=== PATIENT | female | born 1985 | race African-American/Black ===

== ENCOUNTER 2023-05-23 07:59 | Emergency (ER) | payer OTHER, SELFPAY ==
[2023-05-23 08:02] VITALS: BP 160/100; PULSE 87; TEMP 37; O2SAT 98; BMI 51.5
[2023-05-23 08:09] LABS: Glucometer 341 mg/dL (74-106)
[2023-05-23] MEDS: 0.9 % SODIUM CHLORIDE 1,000 ML 1000 ML IV (08:22)
[2023-05-23 08:26] LABS: Basophils Absolute Auto 0.1 10^3/uL (0.0-0.1); Basophils Percent Auto 0.7 % (0.2-2.0); Eosinophils Absolute Auto 0.3 10^3/uL (0.0-0.7); Eosinophils Percent Auto 2.8 % (0.9-7.0); Hematocrit 38.9 % (36.0-48.0); Hemoglobin 12.7 g/dL (12.0-16.0); Immature Granulocytes Abs Auto 0.05 10^3/uL (0.00-0.03); Immature Granulocytes Pct Auto 0.4 % (0.0-0.5); Lymphocytes Absolute Auto 4.6 10^3/uL (1.2-3.8); Lymphocytes Percent Auto 38.1 % (20.5-60.0); Mean Corpuscular HGB Conc 32.6 g/dL (29.9-35.2); Mean Corpuscular Hemoglobin 26.5 pg (26.7-34.0); Mean Platelet Volume 9.4 fL (9.5-13.5); Platelet Count 411 10^3/uL (150-450); Red Cell Distribution Width 13.5 % (11.0-15.0); White Blood Count 12.1 10^3/uL (4.0-11.0)
[2023-05-23 08:47] LABS: Anion Gap 15.4; Calcium 9.4 mg/dL (8.5-10.1); Carbon Dioxide 22.7 mmol/L (21.0-32.0); Chloride 99 mmol/L (98-107); Estimated GFR (African America >60 (>=60); Estimated GFR (Non-African Ame >60 (>=60); Glucose 345 mg/dL (74-106); Potassium 4.1 mmol/L (3.5-5.1); Sodium 133 mmol/L (136-145)
[2023-05-23 09:02] LABS: Glucometer 313 mg/dL (74-106)
[2023-05-23] MEDS: INSULIN REGULAR 300 UNITS/3 ML 8 UNIT IV (09:08)
[2023-05-23 09:15] VITALS: BP 124/86
--- NOTE | 2023-05-23 09:53 | ED.GENADUL1 ---
HPI HPI - General Adult General Chief complaint: Recheck/Abnormal Lab/Rx Stated complaint: HIGH BLOOD SUGAR Time Seen by Provider: 05/23/23 08:02 Source: patient Mode of arrival: walk-in Limitations: no limitations History of Present Illness HPI narrative: 38-year-old female presents to the emergency department for elevated blood sugar. She has been off of her medications for about a month and a half.She has had some frequent urination and has been thirsty. She recently got her insurance back and now can get back on her medication but she does not have a PCP. No fever or vomiting. Related Data Home Medications ?Medication ?Instructions ?Recorded ?Confirmed tirzepatide 12.5 mg/0.5 mL 12.5 mg subcut QWEEK 05/23/23 05/23/23 subcutaneous pen injector (Mounjaro) Previous Rx's ?Medication ?Instructions ?Recorded tirzepatide 2.5 mg/0.5 mL 2.5 mg (0.5 mL) subcut QWEEK 4 05/23/23 subcutaneous pen injector weeks #4 mL (Mounjaro) Allergies Allergy/AdvReac Type Severity Reaction Status Date / Time No Known Drug Allergies Allergy Verified 05/23/23 08:05 Opioid HPI Opioid Management Most Recent Opioid Data: No Data to Display Review of Systems ROS Narrative A ten point review of systems is negative except as noted above. Positive for polyuria and polydipsia Exam Narrative Exam Narrative: Nurses note and vital signs reviewed and patient is not hypoxic. General: The patient appears well and in no apparent distress. Patient is resting comfortably on cart. Skin: Warm, dry, no pallor noted. There is no rash noted. Head: Normocephalic, atraumatic Eye: Normal conjunctiva, no drainage Ears, Nose, Mouth, and Throat: oral mucosa is moist. Nares patent. Cardiovascular: Regular Rate and Rhythm Respiratory: Patient is in no distress, no accessory muscle use, lungs are clear to auscultation, no wheezing, rales or rhonchi Back: non-tender GI: Soft and nontender Musculoskeletal: The patient has no evidence of calf tenderness, no pitting edema, symmetrical pulses noted bilaterally Neurological: A&O, normal speech Psychiatric: Cooperative Constitutional Vital Signs, click to edit/add: Last Vital Signs Temp 98.6 F 05/23/23 08:02 Pulse 87 05/23/23 08:02 Resp 18 05/23/23 08:02 BP 124/86 05/23/23 09:15 Pulse Ox 98 05/23/23 08:02 O2 Del Method Room Air 05/23/23 08:02 Course Vital Signs Vital signs: Vital Signs Temperature 98.6 F 05/23/23 08:02 Pulse Rate 87 05/23/23 08:02 Respiratory Rate 18 05/23/23 08:02 Blood Pressure 160/100 H 05/23/23 08:02 Pulse Oximetry 98 05/23/23 08:02 Oxygen Delivery Method Room Air 05/23/23 08:02 Temperature 98.6 F 05/23/23 08:02 Pulse Rate 87 05/23/23 08:02 Respiratory Rate 18 05/23/23 08:02 Blood Pressure 124/86 05/23/23 09:15 Pulse Oximetry 98 05/23/23 08:02 Oxygen Delivery Method Room Air 05/23/23 08:02 Medical Decision Making MDM Narrative Medical decision making narrative: Blood sugar was found to be elevated and she was given IV fluids and IV insulin and her blood sugar has been coming down. She is given a list of PCPs and was given a 2-month supply of her medication. Treatment diagnosis and follow-up were discussed with the patient. Differential Diagnosis Differential Diagnosis: Hyperglycemia, DKA Lab Data Lab results reviewed: Yes I reviewed the patient's lab results Labs: Lab Results 05/23/23 05/23/23 05/23/23 Range/Units 08:08 08:20 09:01 WBC 12.1 H (4.0-11.0) 10^3/uL RBC 4.80 (4.20-5.40) 10^6/uL Hgb 12.7 (12.0-16.0) g/dL Hct 38.9 (36.0-48.0) % MCV 81.0 (81.0-99.0) fL MCH 26.5 L (26.7-34.0) pg MCHC 32.6 (29.9-35.2) g/dL RDW 13.5 (11.0-15.0) % Plt Count 411 (150-450) 10^3/uL MPV 9.4 L (9.5-13.5) fL Neut % (Auto) 50.0 (43.0-75.0) % Lymph % (Auto) 38.1 (20.5-60.0) % [place] % (Auto) 8.0 (1.7-12.0) % Eos % (Auto) 2.8 (0.9-7.0) % Baso % (Auto) 0.7 (0.2-2.0) % Neut # (Auto) 6.0 (1.4-6.5) 10^3/uL Lymph # (Auto) 4.6 H (1.2-3.8) 10^3/uL [place] # (Auto) 1.0 H (0.3-0.8) 10^3/uL Eos # (Auto) 0.3 (0.0-0.7) 10^3/uL Baso # (Auto) 0.1 (0.0-0.1) 10^3/uL Abs Immat Gran (auto) 0.05 H (0.00-0.03) 10^3/uL Imm/Tot Granulo (auto) 0.4 (0.0-0.5) % Sodium 133 L (136-145) mmol/L Potassium 4.1 (3.5-5.1) mmol/L Chloride 99 (98-107) mmol/L Carbon Dioxide 22.7 (21.0-32.0) mmol/L Anion Gap 15.4 BUN 12.0 (7.0-18.0) mg/dL Creatinine 0.80 (0.55-1.02) mg/dL Est GFR ( Amer) >60 (>=60) Est GFR (Non-Af Amer) >60 (>=60) BUN/Creatinine Ratio 15.0 Glucose 345 H (74-106) mg/dL Calcium 9.4 (8.5-10.1) mg/dL POC Glucose 341 H 313 H (74-106) mg/dL 05/23/23 Range/Units 10:00 WBC (4.0-11.0) 10^3/uL RBC (4.20-5.40) 10^6/uL Hgb (12.0-16.0) g/dL Hct (36.0-48.0) % MCV (81.0-99.0) fL MCH (26.7-34.0) pg MCHC (29.9-35.2) g/dL RDW (11.0-15.0) % Plt Count (150-450) 10^3/uL MPV (9.5-13.5) fL Neut % (Auto) (43.0-75.0) % Lymph % (Auto) (20.5-60.0) % [place] % (Auto) (1.7-12.0) % Eos % (Auto) (0.9-7.0) % Baso % (Auto) (0.2-2.0) % Neut # (Auto) (1.4-6.5) 10^3/uL Lymph # (Auto) (1.2-3.8) 10^3/uL [place] # (Auto) (0.3-0.8) 10^3/uL Eos # (Auto) (0.0-0.7) 10^3/uL Baso # (Auto) (0.0-0.1) 10^3/uL Abs Immat Gran (auto) (0.00-0.03) 10^3/uL Imm/Tot Granulo (auto) (0.0-0.5) % Sodium (136-145) mmol/L Potassium (3.5-5.1) mmol/L Chloride (98-107) mmol/L Carbon Dioxide (21.0-32.0) mmol/L Anion Gap BUN (7.0-18.0) mg/dL Creatinine (0.55-1.02) mg/dL Est GFR ( Amer) (>=60) Est GFR (Non-Af Amer) (>=60) BUN/Creatinine Ratio Glucose (74-106) mg/dL Calcium (8.5-10.1) mg/dL POC Glucose 276 H (74-106) mg/dL Critical Care Time Critical Care Time Critical Care Time: Yes Total Critical Care Time: 35 Attestation: Due to the high probability of sudden and clinically significant deterioration in the patient's condition he/she required the highest level of my preparedness to intervene urgently I provided critical care time including documentation time, medication orders and management, reevaluation, vital sign assessment, ordering and reviewing of lab tests, ordering and reviewing of x-ray studies, and admission orders. Aggregate critical care time is 35 minutes including only time during which I was engaged in work directly related to his/her care and did not include time spent treating other patients simultaneously. Discharge Plan Discharge Stand Alone Forms: Portal Instructions Chief Complaint: Recheck/Abnormal Lab/Rx Clinical Impression: Encounter for medication refill, Hyperglycemia Patient Disposition: Home, Self-Care Time of Disposition Decision: 10:04 Condition: Good Mode of Transportation: Private Vehicle Prescriptions / Home Meds: New Mounjaro 2.5 mg/0.5 mL pen injector 2.5 mg subcut QWEEK 28 Days Qty: 4 0RF No Action Mounjaro 12.5 mg/0.5 mL pen injector 12.5 mg subcut QWEEK Print Language: Syrian Instructions: Diabetic Hyperglycemia (ED) Additional Instructions: See attached list for PCP Referrals: Physician,Non-Staff, MD [Primary Care Provider] - 1 week
[2023-05-23 10:01] LABS: Glucometer 276 mg/dL (74-106)
== END 2023-05-23 10:22 | disposition home or self-care (01) ==
PROVIDERS: Emergency Provider Emergency Medicine
DX: E11.65 Type 2 diabetes mellitus with hyperglycemia (principal); Z76.0 Encounter for issue of repeat prescription; Z79.899 Other long term (current) drug therapy
CPT/HCPCS: 36415; 80048; 82948; 85025; 99284

== ENCOUNTER 2023-05-27 09:44 | Outpatient (OUT) | payer OTHER, SELFPAY ==
[2023-05-27 10:53] LABS: Alanine Aminotransferase 31 U/L (14-59); Albumin Globulin Ratio 0.7; Albumin Level 3.2 g/dL (3.4-5.0); Alkaline Phosphatase 75 U/L (46-116); Anion Gap 12.6; Aspartate Amino Transferase 18 U/L (15-37); BUN Creatinine Ratio 16.2; Bilirubin Total 0.4 mg/dL (0.2-1.0); Calcium 9.8 mg/dL (8.5-10.1); Carbon Dioxide 25.4 mmol/L (21.0-32.0); Chloride 102 mmol/L (98-107); Estimated GFR (African America >60 (>=60); Estimated GFR (Non-African Ame >60 (>=60); Globulin 4.9 g/dL; Glucose 226 mg/dL (74-106); Sodium 136 mmol/L (136-145); Total Protein 8.1 g/dL (6.4-8.2)
[2023-05-27 11:08] LABS: Hemoglobin 12.4 g/dL (12.0-16.0); Mean Corpuscular HGB Conc 31.8 g/dL (29.9-35.2); Mean Corpuscular Hemoglobin 26.2 pg (26.7-34.0); Mean Corpuscular Volume 82.5 fL (81.0-99.0); Mean Platelet Volume 9.5 fL (9.5-13.5); Platelet Count 424 10^3/uL (150-450); Red Blood Count 4.73 10^6/uL (4.20-5.40); Red Cell Distribution Width 13.7 % (11.0-15.0); White Blood Count 11.7 10^3/uL (4.0-11.0)
== END 2023-05-27 09:45 | disposition home or self-care (01) ==
LOC: LAB 09:45
PROVIDERS: PCP Nurse Practitioner; Visit Provider Nurse Practitioner
DX: E11.9 Type 2 diabetes mellitus without complications (principal)
CPT/HCPCS: 36415; 80053; 85027

== ENCOUNTER 2023-06-23 11:43 | Outpatient (OUT) | payer OTHER, SELFPAY ==
[2023-06-23 12:55] LABS: Basophils Absolute Auto 0.1 10^3/uL (0.0-0.1); Basophils Percent Auto 0.7 % (0.2-2.0); Eosinophils Absolute Auto 0.2 10^3/uL (0.0-0.7); Hematocrit 37.7 % (36.0-48.0); Hemoglobin 12.2 g/dL (12.0-16.0); Immature Granulocytes Abs Auto 0.03 10^3/uL (0.00-0.03); Immature Granulocytes Pct Auto 0.3 % (0.0-0.5); Lymphocytes Absolute Auto 4.1 10^3/uL (1.2-3.8); Lymphocytes Percent Auto 38.9 % (20.5-60.0); Mean Corpuscular HGB Conc 32.4 g/dL (29.9-35.2); Mean Corpuscular Hemoglobin 26.5 pg (26.7-34.0); Mean Corpuscular Volume 81.8 fL (81.0-99.0); Monocytes Absolute Auto 0.8 10^3/uL (0.3-0.8); Monocytes Percent Auto 7.6 % (1.7-12.0); Neutrophils Absolute Auto 5.4 10^3/uL (1.4-6.5); Neutrophils Percent Auto 50.5 % (43.0-75.0); Platelet Count 437 10^3/uL (150-450); Red Blood Count 4.61 10^6/uL (4.20-5.40); Red Cell Distribution Width 13.5 % (11.0-15.0); White Blood Count 10.6 10^3/uL (4.0-11.0)
[2023-06-23 13:40] LABS: Percent Iron Saturation 10.7 %
[2023-06-23 15:01] LABS: Alanine Aminotransferase 26 U/L (14-59); Albumin Globulin Ratio 0.7; Albumin Level 3.2 g/dL (3.4-5.0); Alkaline Phosphatase 74 U/L (46-116); Anion Gap 12.2; Aspartate Amino Transferase 12 U/L (15-37); Bilirubin Total 0.4 mg/dL (0.2-1.0); Calcium 9.4 mg/dL (8.5-10.1); Carbon Dioxide 24.6 mmol/L (21.0-32.0); Chloride 104 mmol/L (98-107); Cholesterol 179 mg/dL (<=200); Estimated GFR (African America >60 (>=60); Estimated GFR (Non-African Ame >60 (>=60); Globulin 4.5 g/dL; Glucose 151 mg/dL (74-106); HDL Cholesterol 41 mg/dL (40-60); Potassium 3.8 mmol/L (3.5-5.1); Sodium 137 mmol/L (136-145); Total Protein 7.7 g/dL (6.4-8.2); Triglycerides 66 mg/dL (<=150); VLDL CHOLESTEROL 13.2 mg/dL
[2023-06-23 15:02] LABS: Chol HDL Ratio 4.4; TSH W/ REFLEX FT4 1.317 uIU/mL (0.358-3.740)
[2023-06-23 15:45] LABS: Estimated Average Glucose 194 mg/dL; Glycohemoglobin A1C 8.4 % (4.5-6.2)
[2023-06-24 12:10] LABS: PTH, Intact 26 pg/mL (15-65)
== END 2023-06-23 11:44 | disposition home or self-care (01) ==
LOC: LAB 11:45
PROVIDERS: PCP Nurse Practitioner
DX: Z01.818 Encounter for other preprocedural examination (principal); E66.01 Morbid (severe) obesity due to excess calories; Z13.21 Encounter for screening for nutritional disorder; Z68.43 Body mass index [BMI] 50.0-59.9, adult
CPT/HCPCS: 36415; 80053; 80061; 80323; 80326; 80331; 80334; 80337; 80338; 80341; 80344; 80346; 80348; 80353; 80354; 80355; 80357; 80358; 80359; 80360; 80361; 80364; 80365; 80366; 80367; 80368; 80370; 80371; 80372; 80373; 80377; 82306; 82570; 82607; 82728; 82746; 83036; 83540; 83550; 83970; 83992; 84425; 84443; 84590; 85025

== ENCOUNTER 2023-08-27 20:32 | Outpatient (REF) | payer OTHER, SELFPAY ==
--- OUTSIDE RECORDS SUMMARY | 2023-08-27 20:37 | XMS_ITS ---
Patient Summarization (C-CDA 2.1 CCD) Created on: August 27, 2023 Teha Lerma : 1985 Sex: Female Author Organization Sample organization Care Team Providers Care Microelectronics Technician Name Role Phone GINNY RAMIREZ Attending Unavailable Satya TELEMETRY REGISTERED NURSE - MANUAL ARTS TEACHER, [place] Primary Care Provider No Family, Physician Primary Care Unavailable LYNN NUNEZ Primary Care Unavailable LYNN NUNEZ Primary Care Unavailable SATYA, LYNN Primary Care Unavailable No Family, Physician Primary Care Unavailable No Family, Physician Primary Care Unavailable GAURANG FARAH Referring Unavailable LYNN NUNEZ Primary Care Unavailable Encounters Encounter Date Encounter Type Care Provider Facility Start: 08-15-2023 End: [facility]: 08-15-2023 End: 08-15-2023 Subsequent hospital visit by physician Lynn Nunez TELEMETRY REGISTERED NURSE - MANUAL ARTS TEACHER Work Phone: [facility] [employer] [employer] Start: 07-18-2023 End: 07-18-2023 ambulatory [facility] Start: 06-27-2023 End: 06-30-2023 ambulatory [facility] Start: 06-20-2023 End: 06-20-2023 ambulatory Physician [facility] Start: 01-21-2023 End: 01-21-2023 ambulatory GINNY RAMIREZ Not Available Start: 10-15-2022 End: 10-15-2022 ambulatory Physician [facility] Start: 10-04-2022 End: 10-04-2022 ambulatory Physician [facility] Medications Current Medications Medication Drug Class(es) Dates Sig (Normalized) Sig (Original) ergocalciferol 1.25 mg oral capsule (1 source) Provitamin D2 Compound Start: 06-26-19 take 1 capsule by mouth every week vitamin D (ERGOCALCIFEROL) 1.25 MG (50019 UT) CAPS capsule Indications: Vitamin D deficiency Take 1 capsule by mouth once a week 12 capsule 0 06/26/2023 Active ferrous sulfate 325 mg oral tablet (1 source) take 1 tablet by mouth once daily at breakfast ferrous sulfate (IRON 325) 325 (65 Fe) MG tablet Take 1 tablet by mouth daily (with breakfast) 0 Active 1 ml medroxyPROGESTERone acetate 150 mg/ml prefilled syringe (1 source) Progestin Start: 05-23-19 24 medroxyPROGESTERone (DEPO-PROVERA) 150 MG/ML injection inject 1 milliliter INTO THE SHOULDER, THIGH OR BUTTOCKS EVERY 3 MONTHS 0 05/23/2023 Active phentermine hydrochloride 37.5 mg oral capsule (1 source) Sympathomimetic Amine Anorectic Start: 07-18-19 End: 08-17-19 take 1 capsule by mouth once daily in the morning phentermine (ADIPEX-P) 37.5 MG capsule Indications: Morbid obesity with BMI of 50.0-59.9, adult (HCC) Take 1 capsule by mouth every morning for 30 days. Max Daily Amount: 37.5 mg 30 capsule 0 07/18/2023 08/17/2023 Active Payers Date Payer Category Payer Unknown [id number] 2022 Unknown [id number] 1985 Unknown [id number] 2.16. [id number] 1985 Unknown [id number] 2.16. [id number] 1985 Unknown [id number] 2.16. [id number] 1985 Unknown [id number] 2.16. [id number] 1985 Unknown [id number] 2.16. [id number] 1985 Unknown [id number] 2.16. [id number] 1985 Unknown [id number] 2.16. [id number] Plan of Treatment Date Care Activity Detail Author Start: 06-22-2024 Hemoglobin A1c measurement A1C test (Diabetic or Prediabetic) [facility] Start: 06-22-2024 Lipid panel Lipids [facility] Start: 09-11-2023 Influenza vaccination Flu vaccine (# 1) [facility] Start: 08-22-2023 End: 08-22-2023 Patient encounter procedure [facility] [employer] Comment on above: month two of six; petit, on adipex and compounded Mounjaro--get AOM form signed month two of six; petit, on adipex and compounded Mounjaro Start: 2015 Screening for malign ant neoplasm of cervix [facility] Start: 02-02-2015 GFR test (Diabetes, CKD 3-4, OR last GFR 15-59) GFR test (Diabetes, CKD 3-4, OR last GFR 15-59) [facility] Start: 2006 Screening for malign ant neoplasm of cervix Pap smear [facility] Start: 02-18-2004 DTaP/Tdap/Td vaccine (1 - Tdap) DTaP/Tdap/Td vaccine (1 - Tdap) [facility] Start: 2003 Glaucoma screening Diabetic retinal exam [facility] Start: 2003 Hepatitis C screening Hepatitis C sc reen [facility] Start: 2003 Urine screening for protein Diabetic Alb to Cr ratio (uACR) test [facility] Start: 02-18-2000 HIV screening HIV screen [facility] Start: 1997 Depression Screen Depression Screen [facility] Start: 1995 Diabetic foot examination Diabetic foot exam [facility] Start: 1991 Pneumococcal 0-64 ye ars Vaccine (1 of 2 - PCV) Pneumococcal 0-64 years Vaccine (1 of 2 - PCV) [facility] Start: 1986 Varicella vaccine (1 of 2 - 2-dose childhood series) Varicella vaccine (1 of 2 - 2-dose childhood series) [facility] Start: 1985 COVID-19 Vaccine (#1) COVID-19 Vacci ne (#1) [facility] Start: 1985 Hepatitis B vaccine (1 of 3 - 3-dose series) Hepatitis B vaccine (1 of 3 - 3-dose series) [facility] Problems Problem Classification Problem Date Documented Da te Episodic/Chronic Diabetes mellitus with complications (2 sources) Type 2 diabetes mellitus with other specified complication; Translations: [Type 2 diabetes mellitus with other specified complication] Onset: 08-15-2023 Chronic Other nutritional; endocrine; and metabolic disorders (3 sources) Morbid (severe) obesity due to excess calories; Translations: [Morbid (severe) obesity due to excess calories] Onset: 06-20-2023 Chronic Other nutritional; endocrine; and metabolic disorders (3 sources) Body mass index (BMI) 50.0-59.9, adult; Translations: [Body mass index (BMI) 50.0-59.9, adult] Onset: 06-20-2023 Chronic Other nutritional; endocrine; and metabolic disorders (2 sources) Obesity, unspecified; Translations: [Obesity, unspecified] Onset: 08-15-2023 Chronic Procedures Date Procedure Procedure Detail Performing Clinician Start: 08-15-2023 Ecg routine ecg w/le ast 12 lds w/i&r Gaurang Farah MD Work Phone: Results Test Name Value Interpretation Reference Range Facil y EKG 12 LeadOrdered By: Jaja Bang on 08-15-2023 Atrial Rate 93 BPM [facility] Work Phone: P [place] 2 degrees [employer] Phone: P-R Interval 158 ms [facility] Work Phone: Q-T Interval 346 ms [facility] Work Phone: QRS Duration 90 ms [employer] Phone: QTc Calculation (Bazett) 430 ms [facility] Work Phone: R [place] 42 degrees SHERIE WALTERS [employer] Work Phone: T [place] 52 degrees [facility] [employer] Work Phone: Ventricular Rate 93 BPM SHERIE REYES [facility] [employer] Work Phone: SHERIE WALTERS [facility] [employer] Work Phone: EKG 12 Leadon 08-15-2023 Normal sinus rhythm Possible Anterior infarct , age undetermined Abnormal ECG When compared with ECG of 02-FEB-2014 06:19, ST no longer elevated in Lateral leads Confirmed by JESSEE BANG ([id number]) on 08/15/2023 9:00:35 PM [facility] Jessee Cooney MD - 08/15/2023 Normal sinus rhythm Possible Anterior infarct , age undetermined Abnormal ECG When compared with ECG of 02-FEB-2014 06:19, ST no longer elevated in Lateral leads Confirmed by JESSEE BANG ([id number]) on 08/15/2023 9:00:35 PM [facility] 12-LEADon 08-15-2023 EKG 12-LEAD 93 93 158 90 346 430 2 42 52 Normal sinus rhythm Possible Anterior infarct , age undetermined Abnormal ECG When compared with ECG of 02-FEB-2014 06:19, ST no longer elevated in Lateral leads Confirmed by JESSEE BANG ([id number]) on 08/15/2023 9:00:35 PM [email or web address] [email or web address]?[email or web address]=[email or web address] [id number]&Date=06-17-19 24&Time=10%3a19%3a31 %3a00&TestType=ECG&S ite=3&OutputType=PDF &Ext=PDF Normal [facility] Social History Date Type Detail Facility Start: 07-19-2023 Alcohol intake Current drinke r of alcohol (finding) [facility] Start: 06-07-2022 End: 07-19-2023 History of Social function [facility] Start: 06-07-2022 End: 07-19-2023 Tobacco use panel [facility] [employer] Start: 04-11-2013 Tobacco smoking status NHIS Never smoked tobacco [facility] [employer] Start: 04-11-2013 Alcohol Comment occasionally [facility] [employer] Start: 1985 Sex Assigned At Not on file B [facility] [employer] Read-Only, Retired: Physical Abuse Denies [facility] [employer] Summary Purpose Family History No Family History Records FoundNo Family History Records Found Advance Directives No Advanced Directives Records FoundNo Advanced Directives Records Found Additional Source Comments INFORMATION SOURCE (unrecogn ized section and content) DATE CREATED AUTHOR 01/23/2023 [facility] EPIC DATE CREATED AUTHOR AUTHOR'S ORGANIZ ATION 08/16/2023 [facility] Care Teams (unrecognized sec tion and content) Microelectronics Technician Relationship Specialty Start Date End Date Lynn Nunez APRN - ANNA [address] [place] [address] PCP - General Nurse Practitioner 06/27/23 FOR RECORDS PERTAINING TO PATIENTS WHO ARE OR HAVE BEEN ENROLLED IN A CHEMICAL DEPENDENCY/SUBSTANCEABUSE PROGRAM, SOME INFORMATION MAY BE OMITTED. This clinical summary was aggregated from multiple sources. Caution should be exercised in using it in the provision of clinical care. This summary normalizes information from multiple sources, and as a consequence, information in this document may materially change the coding, format and clinical context of patient data. In addition, data may be omitted in some cases. CLINICAL DECISIONS SHOULD BE BASED ON THE PRIMARY CLINICAL RECORDS. [employer] provides no warranty or guarantee of the accuracy or completeness of information in this document.
[2023-09-02 11:11] LABS: Age Gdln ACOG Testing Note (.); HPV Aptima Negative (Negative); IGP, Aptima HPV, rfx 16/18,45 Note (.)
== END 2023-08-27 20:33 | disposition home or self-care (01) ==
LOC: LAB 20:32
PROVIDERS: PCP Nurse Practitioner; Visit Provider Obstetrics & Gynecology
DX: Z01.419 Encounter for gynecological examination (general) (routine) without abnormal findings (principal)
CPT/HCPCS: 87624; 88175